=== PATIENT | male | born 1940 | race Two or more races ===

== ENCOUNTER 2019-03-24 12:18 | Emergency (ER) | payer OTHER ==
[~2019-03-24] VITALS: Ht 175.3 cm; Wt 136.1 kg
[~2019-03-24 12:18] MED LIST: DIS S; INSULIN; XARELTO20 MG PO
[2019-03-24] MEDS ORDERED: NOVOLIN R100 UNIT/1 ×2 (12:50→12:51)
[2019-03-24] MEDS ORDERED: NOVOLIN N100 UNIT/1 (12:51)
[2019-03-24] MEDS ORDERED: QUINAPRIL5 MG (12:51)
== END 2019-03-24 18:14 | disposition home or self-care (01) ==
LOC: ER 12:18
DX: J06.9 Acute upper respiratory infection, unspecified (principal)

== ENCOUNTER 2021-01-09 10:04 | Outpatient (CLI) | payer OTHER ==
[~2021-01-09 10:04] MED LIST changes: +NOVOLIN N100 UNIT/1; +NOVOLIN R100 UNIT/1; +QUINAPRIL5 MG
== END 2021-01-09 10:10 | disposition home or self-care (01) ==
LOC: NUCLEAR 10:04
PROVIDERS: ATTEND General Practice
DX: R60.0 Localized edema (principal)

== ENCOUNTER 2023-09-16 00:29 | Emergency (ER) | payer OTHER ==
[~2023-09-16] VITALS: Ht 177.8 cm; Wt 124.3 kg
[~2023-09-16 00:29] MED LIST changes: +HUMALOG100 UNIT/2 SQ; +HYDROCHLOROTHIA25 MG PO; +LANTUS SOL100 UNIT/1 SQ; +LISINOPRIL20 MG PO; +METFORMIN HCL500 M4 PO; +SIMVASTATIN20 MG PO; +TRULICITY0.75 MG/0. SQ
[2023-09-16] MEDS ORDERED: ALBUTEROL SULFATE 3 ML/2.5 MG AMPUL.NEB IH SCH (01:30)
[2023-09-16 01:56] LABS: HEMATOCRIT 39.3 % (39.0-48.0); HEMOGLOBIN 13.4 g/dL (13-16.00); MEAN CELL VOLUME 84.6 fL (80.0-100.00); MEAN CORPUSCULAR HEMOGLOBIN 28.8 pg (27.00-32.0); PLATELET COUNT 191 K/uL (150-450); RED BLOOD COUNT 4.65 M/uL (4.00-6.00); RED CELL DISTRIBUTION WIDTH 15.4 % (11.5-14.5)
[2023-09-16] MEDS ORDERED: ALBUTEROL SULFATE 3 ML/2.5 MG AMPUL.NEB IH ONE ×2 (02:12→02:13)
[2023-09-16 02:22] LABS: ALBUMIN 3.1 gm/dL (3.4-5.0); BILIRUBIN TOTAL 0.86 mg/dL (0.3-1.2); CALCIUM 8.6 mg/dL (8.5-10.1); CREATININE SERUM 0.96 mg/dL (0.70-1.30); GFR 75.36; GLOBULINA 4.1 G/DL (2.4-3.5); POTASSIUM 3.72 mEq/L (3.5-5.1); TOTAL PROTEIN 7.2 gm/dL (6.4-8.2)
[2023-09-16 03:20] LABS: ABG PH 7.413 (7.35-7.45); ABG PO2 79.9 mmHg (80-100); ABG pCO2 45.5 mmHg (35-45); BASE EXCESS 3.1 mmol/l
[2023-09-16 03:21] LABS: BICARBONATE 28.4 mmol/l (23-25); Tco2 29.8 mmol/l; allen test SATISFACTORY; o2 21 %; puncture site RADIAL LEFT
== END 2023-09-16 05:23 | disposition home or self-care (01) ==
LOC: ER 00:29
DX: J06.9 Acute upper respiratory infection, unspecified (principal); Z20.822 Contact with and (suspected) exposure to COVID-19; I10 Essential (primary) hypertension; E11.9 Type 2 diabetes mellitus without complications; Z79.84 Long term (current) use of oral hypoglycemic drugs